=== PATIENT | female | born 1975 | race Asian ===

== ENCOUNTER 2023-06-30 11:57 | Inpatient (IN) | payer OTHER, MEDICARE, SELFPAY ==
--- NOTE | 2023-06-30 | ECG_ITS ---
Test Reason : perMD Blood Pressure : / mmHG Vent. Rate : 079 BPM Atrial Rate : 079 BPM P-R Int : 158 ms QRS Dur : 084 ms QT Int : 388 ms P-R-T Axes : 067 032 053 degrees QTc Int : 444 ms Normal sinus rhythm Nonspecific T wave abnormality Abnormal ECG No previous ECGs available Referred By: Sandra Delacruz Electronically Signed By:BECK STARKS MD
[2023-06-30 12:15] VITALS: BP 119/73; PULSE 76; RESP 18; TEMP 36.4; O2SAT 94
[2023-06-30 12:30] VITALS: BMI 42.5
--- NOTE | 2023-06-30 12:51 | PC.ADMIT ---
Molly is a 47-year-old female admitted from [facility] to M3 on a CV for treatment of Bipolar Disorder, pt immediately signed 3-day upon arrival. Tox screen negative. Pt presented to [facility] secondary to unsafe behaviors at home, paranoia, and making SI statements to her mother. Pt was supposed to get ECT but was unable to due to cold symptoms. During admission assessment, pt was agitated and irritable about being here. Pt acknowledges that she has bipolar but lacks insight into situation and said I have no idea why I'm here. They wouldn't give me ECT because I had a cold and then they sent me here, I don't need to be here. Pt denies SI/HI/AH/VH. Pt is alert and oriented x4, mood is irritable with congruent affect. Thought process is linear and organized. Pt reports taking Ambien 10mg to help with sleep but still has difficulty sleeping. Pt denies medical issues. Skin check complete. Pt placed on 15 minute safety checks.
--- NOTE | 2023-06-30 13:14 | PC.NURSE ---
Pt refused flu vaccine, reports already being immunized this season.
[2023-06-30] MEDS: hydrOXYzine HCL 25 MG TABLET PO (14:46)
--- NOTE | 2023-06-30 15:16 | P.HPPS_ITS ---
HPI Date of Service: 06/30/23 Chief Complaint: Bipolar Disorder HPI Narrative: pt with bipolar I disorder, MRE gabino. per [facility] [place] [place] ED note, pt was referred to the ED from outpatient ECT on a section 12 for unsafe behaviors at home, increasing paranoia, yelling in the middle of the night, and statements of SI to the mother. she denied SI/HI to interviewer in the ED. on interview with psychiatry hr shared services consultant in the ED pt began crying, saying she wanted to go home, denied psychiatric symptoms, and did not engage substantially in the interview. in a second psychiatry note, pt informed interviewer that she wants to [employer] as well as [employer], reasons unclear. she also informed interviewer that she is coming to suspect that her ex is more famous than she realizes and she believes that he is the optometrist owner of [employer]. she was described as irritable and unable to tolerate an extended interview due to her irritability. collateral was obtained from pt's outpt psychiatrist who reported she generally does well with maintenance ECT but had been showing signs of ps ychotic decompensation in the past couple of weeks. increasing number and frequency of ECT treatments is the proper response. she is also maintained on risperidone and abilify, had been on 4 which had worked well but that was recently reduced to 3.5, which may have precipitated this presentation. on interview with MD, pt calm and cooperative. reports she has bipolar disorder and is treated with ECT Q8 weeks as well as risperidone and abilify. she had missed ECT recently due to illness and has apparently been decompensating. she presented for ECT at [facility] [place] [place] but was told she could not have a treatment because of her URI Sx; she was referred from outpt ECT clinic to ED at that time. she is unable to hazard a guess as to why she was sent from outpt ECT to the ED for a psych eval. she is interested in continuing ECT treatments, preferably 2 or so in the next week, and continuing on more aggressive home medication regimen to quash gabino. c/o sad mood and that she keep thinking her ex founded [employer]. denies substance use, utox NEG. she describes by way of a potentially triggering psychosocial factor that her ex, who got and moved to [place], called her five times 2 weeks ago, but she never called him back, feeling it is inappropriate and she needs to let him go, since he is . she states these recent events profoundly affected her emotionally. she denies any SI/HI/AVH. Past Psychiatric History: Bipolar I Disorder reports renal condition so cannot take lithium. VPA was used but interfered with ECT response so was stopped. no reportred h/o tegretol trial. hosps: at least 5 SA: ambien overdose 2015, x 1 SIB: denies HIB: denies outpt: Dr. Shelton for meds, Dr. Montenegro for ECT [facility] [place] [place] ECT clinic: [phone] Medical Evaluation Reviewed: Hospitalist Aure Pending [facility] Medical History (Updated 06/30/23 @ 20:21 by Ankit Murillo MD) History of seizure Depression Diabetes mellitus type 2 in obese Surgical History (Updated 06/30/23 @ 16:31 by Sandra Delacruz NP) H/O sinus surgery Family History: mother - depression Social History: single, never , no children. 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 lives in [place], [place], in her own apartment. born and raised in [place], [place], oldest of 4 children. father 11/2019, had been closer with him. more fractious relationship with her mother. bachelor's from [employer], Master's from [employer], now enrolled in PhD program at [employer]. Substance History: denies use of tobacco and cannabis reports drinking alcohol about 1-2 times weekly, 1 drink on each occasion denies the use of other drugs Trauma History: denies Meds/Allergies Meds Home Medications Medication Instructions Recorded Confirmed Type aripiprazole 10 mg tablet 10 mg PO QAM 06/30/23 06/30/23 History metformin 500 mg tablet,extended 1,000 mg PO 06/30/23 History release 24 hr propranolol 60 mg tablet 60 mg PO BID 06/30/23 06/30/23 History risperidone 4 mg tablet 4 mg PO BEDTIME 06/30/23 06/30/23 History semaglutide 3 mg PO DAILY 06/30/23 06/30/23 History semaglutide 7 mg PO BEDTIME 06/30/23 06/30/23 History zolpidem 5 mg tablet 5 mg 06/30/23 History Allergies Allergies Allergy/AdvReac Type Severity Reaction Status Date / Time bupropion AdvReac Seizure Verified 06/30/23 14:48 Mental Status Exam Mental Status Exam Narrative: adequately dressed and groomed in street clothes. cooperative. no PMA/PMR. pleasant and cooperative. speech nml rate, amount ,loudness, tone, latency. thoughts linear and logical. affect constricted, normo-intense, non-labile. mood kind of sad. denies SI/SIBI/HI/AVH. does offer she keeps thinking her ex is the peer financial counselor of [employer] as something odd or notable, but is unable to say that she finds it concerning or why she believes it is notable enough to tell i nterviewer. Assessment & Plan Assessment & Plan (1) Stage 2 chronic kidney disease: Status: Acute Code(s): N18.2 - Chronic kidney disease, stage 2 (mild) (2) Hypothyroidism: Status: Acute Code(s): E03.9 - Hypothyroidism, unspecified (3) Bipolar I disorder, recurrent manic episode: Status: Acute Code(s): F31.10 - Bipolar disorder, current episode manic without psychotic features, unspecified Plan continue outpt medications; risperidone recently increased from 3.5 back to usual 4 mg QHS, now at 5 mg QHS per outpt prescriber. arrange for ECT at [facility] or [facility]. Patient educated on: medication risk/benefits and ECT Reason for continued inpatient stay Substantial Risk for: inability to function and rapid decompensation Statement Statement: I have reviewed the history and physical and performed a pertinent examination on my patient. No changes have occurred unless specified. If the History and Physical was not performed prior to admission, the Hospitalist's service will be consulted for completing the admission physical. Time Spent With Patient Time: Total time managing care of this patient today __75__ minutes.
[2023-06-30] MEDS: LORazepam 0.5 MG TABLET PO (15:45)
--- NOTE | 2023-06-30 16:07 | P.CONHOSP_ITS ---
History of Present Illness Data of Consult Service Date: 06/30/23 Primary Care Provider: Unknown Physician HPI 47-year-old woman with history of diabetes mellitus, depression admitted to inpatient adult psych for mental health care. Her vital signs are stable, she has no acute medical complaints at this time Review of Systems 2 Review of Systems: Denies any recent fever chills or decrease in appetite respiratory denies any shortness of breath or cough cardiovascular denies chest pain gastrointestinal denies any dysphagia abdominal pain nausea vomiting or diarrhea genitourinary denies any dysuria frequency or hematuria musculoskeletal denies any joint pain or swelling neuropsych denies any weakness or seizures all other systems reviewed are negative [facility] Medical History History of seizure Depression Diabetes mellitus type 2 in obese Family History (Updated 06/30/23 @ 16:32 by Sandra Delacruz NP) Father Colon cancer Surgical History (Updated 06/30/23 @ 16:31 by Sandra Delacruz NP) H/O sinus surgery Social History Household Members: Family Housing: Apartment Do you presently have visiting nurse or other home services: No Patient Tobacco Use Status: Never used Tobacco service: No Sexual orientation: Straight/Heterosexual Meds Allergies Allergy/AdvReac Type Severity Reaction Status Date / Time bupropion AdvReac Seizure Verified 06/30/23 14:48 Active Medications: Current Medications Acetaminophen (Acetaminophen 325 Mg Tablet) 650 mg PO Q6H PRN PRN Reason: Headache/Pain Mild Scale (1-3) Al Hydroxide/Mg Hydroxide (Magnesium Hydrox/Alum Hydrox 30 Ml Oral.Susp) 30 ml PO Q6H PRN PRN Reason: Heartburn/Nausea Aripiprazole (Aripiprazole 10 Mg Tablet) 10 mg PO DAILY GORDO Hydroxyzine HCl (Hydroxyzine Hcl 25 Mg Tablet) 25 mg PO Q6H PRN PRN Reason: Anxiety Last Admin: 06/30/23 14:46 Dose: 25 mg Lorazepam (Lorazepam 0.5 Mg Tablet) 0.5 mg PO Q4H PRN PRN Reason: severe anxiety Last Admin: 06/30/23 15:45 Dose: 0.5 mg Magnesium Hydroxide (Milk Of Magnesia 30 Ml Oral.Susp) 30 ml PO DAILY PRN PRN Reason: Constipation Metformin HCl (Metformin Hcl 1,000 Mg Tablet) 1,000 mg PO BIDWM GORDO Propranolol HCl (Propranolol Hcl 20 Mg Tablet) 60 mg PO BID GORDO; Protocol Risperidone (Risperidone 1 Mg Tablet) 5 mg PO BEDTIME GORDO Trazodone HCl (Trazodone Hcl 50 Mg Tablet) 50 mg PO BEDTIME MRX1 PRN PRN Reason: Insomnia Zolpidem Tartrate (Zolpidem Tartrate 5 Mg Tablet) 5 mg PO BEDTIME GORDO Zolpidem Tartrate (Zolpidem Tartrate 5 Mg Tablet) 5 mg PO BEDTIME PRN PRN Reason: Insomnia Home Medications Medication Instructions Recorded Confirmed Last Taken Type aripiprazole 10 mg tablet 10 mg PO QAM 06/30/23 06/30/23 Unknown History metformin 500 mg tablet,extended 1,000 mg PO 06/30/23 Unknown History release 24 hr propranolol 60 mg tablet 60 mg PO BID 06/30/23 06/30/23 Unknown History zolpidem 5 mg tablet 5 mg 06/30/23 Unknown History Physical Exam 2 Vital Signs and Narrative: Vital Signs: Last Vital Signs Temp 97.6 F 06/30/23 12:15 Pulse 76 06/30/23 12:15 Resp 18 06/30/23 12:15 BP 119/73 06/30/23 12:15 Pulse Ox 94 06/30/23 12:15 O2 Del Method Room Air 06/30/23 12:15 BMI result Body Mass Index 42.5 Appearing in no acute distress head is normocephalic atraumatic eyes pupils are PERRLA sclera is anicteric mouth throat mucous membranes are intact and moist neck is supple no lymphadenopathy, no JVD noted lung sounds are clear to auscultation heart regular rate rhythm, clear S1, S2 positive bowel sounds, abdomen is soft, nontender neuro patient is alert x3, no focal deficits Results Labs 07/01/23 07:31 07/01/23 07:31 Assessment and Plan (1) Diabetes mellitus: Status: Acute Plan 47-year-old woman admitted to inpatient adult psych for mental health care, risk stratification for ECT requested Patient has history of ECT. No history of aortic stenosis, asthma, COPD, atrial fibrillation, coronary artery disease, hypertension, ICD, anticoagulation, . EKG pending, follow QTC. No medical contraindications noted at this time for ECT. Diabetes mellitus type 2 Management as per psychiatric team Would encourage diabetic diet Mental health Management as per psychiatric team
[2023-06-30] MEDS: metFORMIN HCl 1,000 MG TABLET 1000 MG PO (17:50)
[2023-06-30 20:45] VITALS: BP 125/65; PULSE 84; RESP 16; TEMP 36.5; O2SAT 95
[2023-06-30] MEDS: risperiDONE 1 MG TABLET 5 MG PO (21:30)
[2023-06-30] MEDS: Propranolol HCL 20 MG TABLET 60 MG PO (21:31)
[2023-07-01] MEDS: hydrOXYzine HCL 25 MG TABLET PO (05:26)
[2023-07-01 07:00] VITALS: BP 136/83; PULSE 85; RESP 14; TEMP 36.2; O2SAT 98
[2023-07-01 07:53] LABS: MANUAL DIFF FLAG NO
[2023-07-01 07:55] LABS: Basophils Percent Auto 0.4 % (0-2); Eosinophils Absolute Auto 0.3 X10*3/uL (0.0-0.4); Eosinophils Percent Auto 3.4 % (0-4); Hematocrit 37.5 % (37.0-47.0); Hemoglobin 12.2 g/dl (12.0-16.0); Imm Gran Abs Auto 0.04 X10*3/uL (0.00-0.03); Imm Gran Pct Auto 0.5 % (0.0-0.4); Lymphocytes Absolute Auto 1.8 X10*3/uL (1.2-4.9); Lymphocytes Percent Auto 24.1 % (20-40); Mean Corpuscular HGB Conc 32.5 g/dl (31.0-35.0); Mean Corpuscular Hemoglobin 27.9 pg (27.0-33.0); Mean Corpuscular Volume 85.6 fL (80.0-98.0); Mean Platelet Volume 9.6 fL (9.4-12.3); Monocytes Absolute Auto 0.3 X10*3/uL (0.1-1.2); Monocytes Percent Auto 4.3 % (2-11); Neutrophils Absolute Auto 5.1 x10*3/uL (2.0-8.3); Neutrophils Percent Auto 67.3 % (45-73); Platelet Count 264 X10*3/uL (160-400); Red Blood Count 4.38 X10*6/uL (4.20-5.50); Red Cell Distribution Width 13.2 % (11.0-16.0); White Blood Count 7.6 X10*3/uL (4.8-10.8)
[2023-07-01] MEDS: Propranolol HCL 20 MG TABLET 60 MG PO ×2 (08:03→20:44)
[2023-07-01] MEDS: ARIPiprazole 10 MG TABLET PO (08:03)
[2023-07-01] MEDS: metFORMIN HCl 1,000 MG TABLET 1000 MG PO ×2 (08:04→18:11)
[2023-07-01 08:05] LABS: Estimated Average Glucose 117 mg/dL; Hemoglobin A1c % 5.7 % (<6.0)
[2023-07-01 08:21] LABS: Alanine Aminotransferase 44 U/L (0-31); Albumin Level 3.9 g/dL (3.5-5.0); Alkaline Phosphatase 100 U/L (39-117); Aspartate Amino Transferase 11 U/L (5-31); Bilirubin Direct < 0.2 mg/dL (0.0-0.5); Bilirubin Total 0.2 mg/dL (0.0-1.0); Cholesterol 199 mg/dL (<200); Creatinine Clr Calc Pharmacy 73.4; Estimated Glomerular Filt Rate 52; HDL Cholesterol 48 mg/dL (>40); LDL Cholesterol Calculated 115 mg/dL (<100); Total Protein 7.4 g/dL (6.5-8.0); Triglycerides 183 mg/dL (<150)
[2023-07-01 08:36] LABS: Free T4 (Free Thyroxine) 1.17 ng/dL (0.71-1.85); Thyroid Stimulating Hormone 1.66 uIU/mL (0.32-4.0)
[2023-07-01 08:45] LABS: Folate 10.3 ng/mL (> or = 4.0); Vitamin B12 693 pg/mL (200-900)
[2023-07-01] MEDS: LORazepam 0.5 MG TABLET PO (08:57)
--- NOTE | 2023-07-01 13:14 | PM.PSYDC ---
DS: Providers Provider Date of Service: 07/01/23 Date of admission: 06/30/23 11:57 Primary care physician: Unknown Physician Consults: 06/30/23 12:15 Consult to Hospitalist Routine Comment: Consulting Provider: Hospitalist Reason For Exam: OSH admission and ECT clearance 06/30/23 14:39 Consult to Mental Health Routine Consulting Provider: David Sotelo Reason for consultation: ECT request Has provider been notified: Yes DS: Diagnosis Discharge Diagnosis (1) Stage 2 chronic kidney disease: Status: Acute (2) Hypothyroidism: Status: Acute (3) Bipolar I disorder, recurrent manic episode: Status: Acute DS: Medications Discharge Medications Home Medications: Home Medications Medication Instructions Recorded Confirmed aripiprazole 10 mg tablet 10 mg PO QAM 06/30/23 06/30/23 metformin 500 mg tablet,extended 1,000 mg PO 06/30/23 release 24 hr propranolol 60 mg tablet 60 mg PO BID 06/30/23 06/30/23 zolpidem 5 mg tablet 5 mg 06/30/23 Previous Rx's Medication Instructions Recorded risperidone 1 mg tablet 1 mg PO BEDTIME 7 days #7 tabs 07/01/23 risperidone 1 mg tablet 4 mg (4 x 1 mg) PO BEDTIME #0 tabs 07/01/23 Mental Status Exam Mental Status Exam Narrative: adequately dressed and groomed in street clothes. cooperative. no PMA/PMR. pleasant and cooperative. speech nml rate, amount ,loudness, tone, latency. thoughts linear and logical. affect constricted, normo-intense, non-labile. mood frustrated. denies SI/SIBI/HI/AVH. Data Data Completed and Pending Completed studies during hospitalization [Text1]: 07/01/23 07:31 WBC 7.6 RBC 4.38 Hgb 12.2 Hct 37.5 MCV 85.6 MCH 27.9 MCHC 32.5 RDW 13.2 Plt Count 264 MPV 9.6 Immature Gran % (Auto) 0.5 H Neut % (Auto) 67.3 Lymph % (Auto) 24.1 [place] % (Auto) 4.3 Eos % (Auto) 3.4 Baso % (Auto) 0.4 Lymph # (Auto) 1.8 [place] # (Auto) 0.3 Eos # (Auto) 0.3 Baso # (Auto) 0.0 Abs Immat Gran (auto) 0.04 H Absolute Neuts (auto) 5.1 Absolute Nucleated RBC 0.000 Nucleated RBC % (auto) 0.0 Creatinine 1.12 Estim Creat Clear Calc 73.4 Estimated GFR 52 Estimat Average Glucose 117 Hemoglobin A1c % 5.7 Total Bilirubin 0.2 Direct Bilirubin < 0.2 AST 11 ALT 44 H Alkaline Phosphatase 100 Total Protein 7.4 Albumin 3.9 Triglycerides 183 H Cholesterol 199 LDL Cholesterol, Calc 115 H HDL Cholesterol 48 Vitamin B12 693 Folate 10.3 TSH 1.66 Free T4 1.17 DS: Summary Hospital Course Hospital Course: per 06/30 admission note: pt with bipolar I disorder, MRE gabino. per [facility] [place], pt was referred to the ED from outpatient ECT on a section 12 for unsafe behaviors at home, increasing paranoia, yelling in the middle of the night, and statements of SI to the mother. she denied SI/HI to interviewer in the ED. on interview with psychiatry professional housing consultant in the ED pt began crying, saying she wanted to go home, denied psychiatric symptoms, and did not engage substantially in the interview. in a second psychiatry note, pt informed interviewer that she wants to alba [employer] as well as [employer], reasons unclear. she also informed interviewer that she is coming to suspect that her ex is more famous than she realizes and she believes that he is the manager produce of [employer]. she was described as irritable and unable to tolerate an extended interview due to her irritability. collateral was obtained from pt's outpt psychiatrist who reported she generally does well with maintenance ECT but had been showing signs of psychotic decompensation in the past couple of weeks. increasing number and frequency of ECT treatments is the proper response. she is also maintained on risperidone and abilify, had been on 4 which had worked well but that was recently reduced to 3.5, which may have precipitated this presentation. on interview with MD, pt calm and cooperative. reports she has bipolar disorder and is treated with ECT Q8 weeks as well as risperidone and abilify. she had missed ECT recently due to illness and has apparently been decompensating. she presented for [place] [facility] [place] was told she could not have a treatment because of her URI Sx; she was referred from outpt ECT clinic to ED at that time. she is unable to hazard a guess as to why she was sent from outpt ECT to the ED for a psych eval. she is interested in continuing ECT treatments, preferably 2 or so in the next week, and continuing on more aggressive home medication regimen to quash gabino. c/o sad mood and that she keep thinking her ex founded [employer]. denies substance use, utox NEG. she describes by way of a potentially triggering psychosocial factor that her ex, who got and moved to [place], called her five times 2 weeks ago, but she never called him back, feeling it is inappropriate and she needs to let him go, since he is . she states these recent events profoundly affected her emotionally. she denies any SI/HI/AVH. Past Psychiatric History: Bipolar I Disorder reports renal condition so cannot take lithium. VPA was used but interfered with ECT response so was stopped. no reportred h/o tegretol trial. hosps: at least 5 SA: ambien overdose 2015, x 1 SIB: denies HIB: denies outpt: Dr. Shelton for meds, Dr. Montenegro for ECT [facility] [place]: [phone] Medical Evaluation Reviewed: Hospitalist Aure Pending [facility] Medical History (Updated 06/30/23 @ 20:21 by Ankit Murillo MD) History of seizure Depression Diabetes mellitus type 2 in obese Surgical History (Updated 06/30/23 @ 16:31 by Sandra Delacruz NP) H/O sinus surgery Family History: mother - depression Social History: single, never , no children. 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 lives in [place], [place], in her own apartment. born and raised in [place], [place], oldest of 4 children. father 11/2019, had been closer with him. more fractious relationship with her mother. bachelor's from [employer], Master's from [employer], now enrolled in PhD program at [employer]. Substance History: denies use of tobacco and cannabis reports drinking alcohol about 1-2 times weekly, 1 drink on each occasion denies the use of other drugs Trauma History: denies Plan: 06/30: continue outpt medications; risperidone recently increased from 3.5 back to usual 4 mg QHS, now at 5 mg QHS per outpt prescriber. arrange for ECT at [facility] [place] [place] or [facility]. 07/01: stable, asking for discharge. ECT appmt made at [facility] [place]. meds reviewed, reconciled, prescribed. 07/02: stable. discharged to home as per plan. Time Spent with Patient Time attestation: Total time managing care of this patient today ____ minutes. Time spent: Greater than 30 minutes Discharge Plan Discharge Anticipated Discharge Date/Time: 07/02/23 11:00 Patient Disposition: Home, Self-Care Discharge Diagnosis: Bipolar I Disorder, MRE Manic Hypothyroidism Diabetes Mellitus Referrals: [facility] [Other] - 07/04/23 7:00 am (ECT scheduled for 07/04/23 @7am) Dr. Navin Holt (Therapy) [Other] - 07/07/23 1:45 pm (TELEHEALTH APPOINTMENT) Dr. Shelton (Psychiatry) [Other] - 07/09/23 10:00 am (TELEHEALTH APPOINTMENT) [facility] [Other] - 1 Week (If you need a primary care provider, please call the above number to make a new patient appointment.) Discharge Medications: New risperidone 1 mg tablet 1 mg PO BEDTIME 7 Days Qty: 7 0RF Rx Instructions: take in addition to your 4 mg bedtime dose for a total bedtime dose of 5 mg risperidone 1 mg Tablet 4 mg PO BEDTIME Qty: 0 0RF Continued propranolol 60 mg tablet 60 mg PO BID zolpidem 5 mg tablet 5 mg metformin 500 mg tablet extended release 24 hr 1,000 mg PO aripiprazole 10 mg tablet 10 mg PO QAM Discontinued risperidone 4 mg tablet 4 mg PO BEDTIME semaglutide 7 mg PO BEDTIME semaglutide 3 mg PO DAILY Discharge Orders: Discharge Order (Routine); Ordered 07/02/23 Ordered By: Ankit Murillo Diet: Diabetic diet Activity on Discharge: As tolerated Stand Alone Forms: Patient Portal Discharge page, Community Support Care Plan Goals: remain safe and stable in the outpatient treatment setting Health Concerns: none Plan of Treatment: take medications as prescribed, attend appointments as scheduled Assessment: not at imminent risk of harm to self or others Discharge Date/Time: 07/02/23 10:55
[2023-07-01] MEDS: Acetaminophen 325 MG TABLET 650 MG PO (15:14)
[2023-07-01 20:40] VITALS: BP 131/75; PULSE 81; RESP 16; TEMP 36.6; O2SAT 97
[2023-07-01] MEDS: risperiDONE 1 MG TABLET 5 MG PO (20:43)
[2023-07-01] MEDS: Zolpidem Tartrate 5 MG TABLET PO (20:44)
[2023-07-02 06:00] VITALS: BP 126/82; PULSE 82; RESP 16; TEMP 36.2; O2SAT 96
[2023-07-02] MEDS: metFORMIN HCl 1,000 MG TABLET 1000 MG PO (08:12)
[2023-07-02] MEDS: Propranolol HCL 20 MG TABLET 60 MG PO (08:12)
[2023-07-02] MEDS: ARIPiprazole 10 MG TABLET PO (08:12)
== END 2023-07-02 10:55 | disposition home or self-care (01) | DRG 885 ==
PROVIDERS: Admitting Provider Psychiatry & Neurology Psychiatry; Visit Provider Psychiatry & Neurology Psychiatry
DX: F31.10 Bipolar disorder, current episode manic without psychotic features, unspecified (principal); E03.9 Hypothyroidism, unspecified; N18.2 Chronic kidney disease, stage 2 (mild); E11.22 Type 2 diabetes mellitus with diabetic chronic kidney disease; Z91.199 Patient's noncompliance with other medical treatment and regimen due to unspecified reason; Z79.84 Long term (current) use of oral hypoglycemic drugs; Z79.899 Other long term (current) drug therapy
CPT/HCPCS: 36415; 80061; 80076; 82565; 82607; 82746; 83036; 84439; 84443; 85025; 93005

== ENCOUNTER 2023-06-30 11:57 | Outpatient (BNV) | payer OTHER, SELFPAY | END 2023-06-30 17:26 | PROVIDERS: Admitting Provider Psychiatry & Neurology Psychiatry; Visit Provider Internal Medicine Cardiovascular Disease | DX: R94.31 Abnormal electrocardiogram [ECG] [EKG] (principal) | CPT/HCPCS: 93010 ==

== ENCOUNTER → 2023-06-30 11:57 | Outpatient (BNV) | payer OTHER, SELFPAY | PROVIDERS: Admitting Provider Psychiatry & Neurology Psychiatry; Visit Provider Nurse Practitioner Acute Care | DX: E11.9 Type 2 diabetes mellitus without complications (principal) | CPT/HCPCS: 99221 ==

== ENCOUNTER → 2023-06-30 11:57 | Outpatient (BNV) | payer OTHER, SELFPAY | PROVIDERS: Admitting Provider Psychiatry & Neurology Psychiatry; Visit Provider Psychiatry & Neurology Psychiatry | DX: F31.10 Bipolar disorder, current episode manic without psychotic features, unspecified (principal); N18.2 Chronic kidney disease, stage 2 (mild); E03.9 Hypothyroidism, unspecified | CPT/HCPCS: 90792; 99231; 99239 ==